=== PATIENT | female | born 1980 | race Caucasian/White ===

== ENCOUNTER 2016-10-31 18:01 | Emergency (ER) | payer OTHER ==
[~2016-10-31 18:01] MED LIST: ACIPHEX20 MG PO; ALBUTEROL17 GM INH; AMOXICILLIN500 M1 PO; BACTRIM 400-801 TA1 PO; BACTRIM DS TABL1 TA1 PO; BENTYL10 MG PO; BENTYL20 MG DOB; BUSPAR5 MG PO; CARAFATE1 G; CIPRO250 M1 PO; CLARITHROMYCIN500 MG PO; CLARITIN10 M3 PO; DEPAKOTE PO; DESYREL100 MG PO; DICYCLOMINE HCL20 MG PO; DOXYCYCLINE HY100 M1 PO; FAMOTIDINE PO; FIORICET 50-321 EACH PO; FIORINAL CAPSUL1 CAP PO; FLEXERIL PO; FLEXERIL10 MG PO; GABAPENTIN300 M2 PO; GLUCOTROL PO; HUMALOG; HYDROCODON-ACE1 EAC9 PO; HYDROCODON-ACE1 EACH PO; HYDROXYZINE HCL25 M1 PO; IBUPROFEN800 MG PO; JANUVIA100 MG PO; K-DUR20 ME1 PO; KEFLEX500 MG PO; KEPPRA1000 MG PO; KEPPRA500 M1 DOB; KEPPRA500 M1 PO; KEPPRA500 M2 PO; KEPPRA500 MG PO; LANTUS100 UNITS/; LEVOFLOXACIN500 MG PO; LORTAB 5/500 TA1 TA2 PO; MEDROL4 MG/DOSE- PO; MORGIDOX100 MG PO; NAPROSYN500 MG PO; NAPROXEN PO; NO MEDICATIONS; OMEPRAZOLE20 M1 PO; PEPCID; PHENERGAN PO; PHENERGAN SUPP25 MG PR; PHENERGAN25 M1 DOB; PHENERGAN25 M1 PO; PHENERGAN25 MG PO; PHENERGAN25 MG PR; PHENERGAN25 MG RC; PREDNISONE PO; PREDNISONE10 MG PO; PREDNISONE10 MG/DOSE PO; PREDNISONE50 MG PO; PREVACID PO; PRILOSEC; PRILOSEC PO; PRILOSEC20 MG PO; PRILOSEC40 MG PO; PROVERA PO; PROZAC10 MG PO; PYRIDIUM100 MG PO; ROBAXIN 750750 M1 PO; ROBITUSSIN100 MG/51 PO; TESSALON200 MG PO; THERAGRAN-M AD1 EACH PO; TYLENOL #3 PO; TYLOX1 CAP 5/50 PO; VICODIN 5/1 TAB 5/50 PO; VICODIN 5/500 T1 TAB PO; VICODIN PO; VOLTAREN50 MG PO; VOLTAREN75 MG PO; ZANTAC; ZITHROMAX1 G/PKT PO; [UNRECOGNIZED DRUG - REMARK]
[2016-10-31] MEDS ORDERED: AMBIEN CR (18:21)
[2016-10-31 19:44] LABS: BASOPHIL% 0.5 % (0-2.5); EOSINOPHIL# 0.3 X10e3 (0-0.7); EOSINOPHIL% 4.2 % (0.0-7.0); HEMATOCRIT 38.1 % (35.0-45.0); HEMOGLOBIN 12.7 gm/dL (12.0-16.0); LYMPHOCYTE% 46.2 % (17.0-45.0); MEAN CORPUSCULAR HEMOGLOBIN 27.7 PG (28-34); MEAN CORPUSCULAR HGB CONC 33.3 g/dL (30-36); MEAN PLATELET VOLUME 6.8 FL (6.5-11.5); MONOCYTE# 0.3 X10e3 (0-1.0); MONOCYTE% 4.6 % (3.0-12.0); NEUTROPHIL# 2.9 X10e3 (1.5-7.1); NEUTROPHIL% 44.5 % (40-75); PLATELET COUNT 179 X10e3 (140-420); RED BLOOD COUNT 4.59 X10e (3.90-5.30); RED CELL DISTRIBUTION WIDTH 15.6 % (11.0-15.5); WHITE BLOOD COUNT 6.4 X10e3 (4.0-10.5)
[2016-10-31 19:45] LABS: DIFF IND NO; URINE SOURCE CLEAN CATCH
[2016-10-31 19:47] LABS: URINE APPEARANCE CLEAR; URINE BILIRUBIN NEG (NEG); URINE BLOOD NEG (NEG); URINE COLOR YELLOW; URINE GLUCOSE NEG (NORM); URINE KETONE 1+ (NEG); URINE LEUKOCYTE ESTERASE TRACE (NEG); URINE NITRATE NEG (NEG); URINE PROTEIN NEG (NEG); URINE SPECIFIC GRAVITY >=1.030 (1.003-1.035); URINE UROBILINOGEN 0.2 MG/DL (NORM)
[2016-10-31 19:48] LABS: MICRO INDICATED? YES
[2016-10-31 19:51] LABS: CULTURE INDICATED? YES; URINE BACTERIA 1+ (NEG); URINE MUCUS PRESENT; URINE SQUAMOUS EPITHELIAL CELL FEW /[HPF]
[2016-10-31 19:59] LABS: CALCIUM SERUM 8.6 mg/dL (8.4-10.2); CREATININE SERUM 0.7 mg/dL (0.6-1.4); GLOM FILT RATE Estimated 112.3 mL/min (>60); POTASSIUM 3.4 mmol/L (3.5-5.1)
== END 2016-10-31 20:55 | disposition home or self-care (01) ==
LOC: SED 18:01
PROVIDERS: Emergency Medicine
DX: E86.0 Dehydration (principal); R51 Headache; E11.9 Type 2 diabetes mellitus without complications; Z88.5 Allergy status to narcotic agent; Z88.8 Allergy status to other drugs, medicaments and biological substances; Z88.6 Allergy status to analgesic agent; Z79.899 Other long term (current) drug therapy; Z79.4 Long term (current) use of insulin
CPT/HCPCS: 36415; 80048; 81003; 85025; 87086; 96361; 96374; 96375; 99284; J0780; J1200